=== PATIENT | female | born 1970 | race Caucasian/White ===

== ENCOUNTER 2023-05-07 07:59 | Outpatient (OUT) | payer BC, SELFPAY ==
--- NOTE | 2023-05-07 08:01 | MM_ITS ---
Patient Name: CRYSTAL MORSE MR#: [id number] : 1970 Exam Date: 05/07/2023 Ordering Doctor: DR. HARITHA AVILA D.O. RADIOLOGY REPORT PROCEDURE: MM TOMOSYNTHESIS SCREENING BI COMPARISON: MG MAMM SCREEN 3D [facility]ERSON CAD, 05/04/2022. MG MAMM SCREEN 3D JERSON CAD, 04/27/2021. INDICATIONS: screening Calculator Name NCI Breast Cancer Risk Assessment Tool 5 Year Breast Cancer Risk 1.10% Lifetime Breast Cancer Risk 9.70% Personal Breast Cancer No Personal Ovarian Cancer No Treatments None Family Cancers Aunt-maternal with breast cancer at age 40. LOCATION: [facility] BREAST COMPOSITION: Heterogeneously dense,which may obscure small masses. FINDINGS: DIAGNOSTIC CATEGORY 2--BENIGN FINDING. NO CHANGE FROM COMPARISON. Scattered benign-appearing nodules are present. Scattered benign-appearing calcifications are present. Scattered benign-appearing lymph nodes are present. RIGHT BREAST: No significant suspicious finding. LEFT BREAST: No significant suspicious finding. RECOMMENDATIONS: ROUTINE MAMMOGRAM AND CLINICAL EVALUATION IN 12 MONTHS. PLEASE NOTE: A NORMAL MAMMOGRAM DOES NOT EXCLUDE THE POSSIBILITY OF BREAST CANCER. A CLINICALLY SUSPICIOUS PALPABLE LUMP SHOULD BE BIOPSIED. Dictated by: Surya Queen MD on 05/07/2023 at 09:37 Approved by: Surya Queen MD on 05/07/2023 at 09:38
== END 2023-05-07 08:00 | disposition home or self-care (01) ==
LOC: MAMMO 07:59
PROVIDERS: PCP Internal Medicine; Visit Provider Obstetrics & Gynecology
DX: Z12.31 Encounter for screening mammogram for malignant neoplasm of breast (principal); Z80.3 Family history of malignant neoplasm of breast
CPT/HCPCS: 77063; 77067

== ENCOUNTER 2024-05-19 07:36 | Outpatient (OUT) | payer BC, SELFPAY ==
--- OUTSIDE RECORDS SUMMARY | 2024-05-19 07:38 | XMS_ITS | CCD ---
Author Organization [facility] Care Team Providers Care Charge Nurse Name Role Phone Muriel Reis Primary Care Physician Muriel Herrera Unavailable Unavailable Jessica Byers Unavailable DR JEMAL POLO Primary Care Unavailable BRIANNA SUN Admitting Unavailable CINDY MENON Consulting Unavailable BRIANNA SUN Attending Unavailable BRIANNA SUN Consulting Unavailable CHRIST, DR WHIPPLE Consulting Unavailable SUMMER DIXON Admitting Unavailable CHRIST, DR WHIPPLE Primary Care Unavailable SUMMER DIXON Attending Unavailable CHRIST, DR WHIPPLE Admitting Unavailable CHRIST, DR WHIPPLE Attending Unavailable CHRIST, DR WHIPPLE Primary Care Unavailable Jemal Polo Unavailable Jemal Polo DO Primary Care Provider CELIO RANDOLPH Referring JEMAL Cullen Primary Care Unavailable Jemal Polo MD Primary Care Provider BRIANNA SUN Attending Unavailable MAGGI WYNNE Attending Unavailable Allergies Allergy Classification Reported Allergen(s) Allergy Type Date of Onset Reaction(s) Facility Penicillins (antibiotic) (1 source) Penicillins Drug [facility] Quinolones (antibiotic) (1 source) Ciprofloxacin; Translations: [Cipro] Drug [facility] (14 sources) Ciprofloxacin Drug Allergy 01-03-20 13 Nausea Only [facility] (8 sources) Penicillin G Drug Allergy 04-24-20 23 [facility] (2 sources) Cefaclor Drug Allergy 04-28-20 15 [facility] (2 sources) Ciprofloxacin Drug Allergy 04-28-20 15 [facility] (5 sources) Clarithromycin Drug Allergy 04-28-20 15 Unknown Reaction [facility] (2 sources) Penicillins Drug allergy (disorder) 12-24-19 13 [facility] (3 sources) Clarithromycin Drug Allergy 01-24-20 13 Unknown [facility] Other (3 sources) Penicillin Drug Allergy 01-03-20 13 Unknown [facility] Other (1 source) Substance with penicillin structure and antibacterial mechanism of action (substance) Drug allergy 11-13-19 07 PENICILLINS vocalt[facility] Other (3 sources) Ceclor *CEPHALOSPORINS* Propensity to adverse reactions 01-03-20 13 Unknown [facility] Other (1 source) patient allergy list reviewed by nurse or physicia Propensity to adverse reactions 12-25-19 18 Comment:Done [facility]alt[facility] Other (1 source) Penicillins Propensity to adverse reactions to drug 10-06-19 17 [facility] (3 sources) Cephalosporins (Antibiotic) Allergy to substance 04-24-20 23 Unknown Reaction [facility] (2 sources) Penicillins Drug Intolerance 10-06-19 17 [facility] Medications Current Medications Medication Drug Class(es) Dates Sig (Normalized) Sig (Original) acetaminophen 325 mg / HYDROcodone bitartrate 5 mg oral tablet (1 source) Opioid Agonist Start: 02-12-2024 take 1 tablet by mouth every eight hours Hydrocodone-Acetamin ophen Active 1 TAB PO Every 8 hours 17 11February 12, 2024 cyclobenzaprine hydrochloride 10 mg oral tablet (7 sources) Muscle Relaxant Start: 02-11-2024 take 10 mg by mouth once daily Cyclobenzaprine Active 10 MG PO daily 11 03February 11, 2024 12:00am Start: 05-19-2022 take 1-2 tablets by mouth once daily at bedtime as needed Cyclobenzaprine HCl 5 MG 1-2 tablet at bedtime as needed Orally Once a day for 7 day(s) Apr, Not-Taking/PRN doxycycline hyclate 100 mg oral capsule (4 sources) Tetracycline-class Drug Start: 06-08-2023 take 1 capsule by mouth every twelve hours Doxycycline Hyclate 100 MG 1 capsule Orally Twice a day for 7 days May, Active Start: 03-26-2023 take 1 tablet by kathy th every twelve hours Doxycycline Hyclate 100 MG 1 tablet Orally Twice a day for 7 days Feb, Not-Taking/PRN methylPREDNISolone 4 mg oral tablet (4 sources) Corticosteroid Start: 02-11-2024 take 1 tablet by mouth once Methylprednisolone (Medrol (Jose Daniel)) 4 mg tablets,dose pack Active 0 PO per package directions February 11, 2024 12:00am PO PER PKG DIR for 6 days Start: 05-19-2022 methylPREDNISo lone 4 MG as directed Orally for daily dose take half with breakfast, half with dinner for 6 days Apr, Active Completed/Discontinued Medications Medication Drug Class(es) Dates Sig (Normalized) Sig (Original) acetaminophen 500 mg oral tablet (1 source) take 2 tablets by mouth every six hours as needed Tylenol Extra Strength 500 mg tablet take 2 tablets (1,000 mg) by oral route every 6 hours as needed ascorbic acid 500 mg extended release oral capsule (1 source) Vitamin C take 1 capsule by mouth once daily Vitamin C 500 mg capsule,extended release take 1 capsule by oral route daily cetirizine hydrochloride 10 mg oral capsule (1 source) Histamine-1 Receptor Antagonist take 1 capsule by mouth once daily Zyrtec 10 mg capsule take 1 capsule by oral route daily ibuprofen 200 mg oral capsule (1 source) Nonsteroidal Anti-inflammatory Drug take 1 capsule by mouth every four to six hours as needed ibuprofen 200 mg capsule take 1 capsule (200 mg) by oral route every 4-6 hours as needed ketoconazole 20 mg/ml topical cream (3 sources) Azole Antifungal Start: 12-11-2022 Ketoconazole 2 % 1 application Externally Twice a week for 28 days Nov, Not-Taking/PRN Start: 12-11-2022 Ketoconazole 2 % 1 application Externally Twice a week for 28 days Nov, Active Ketorolac (5 sources) Nonsteroidal Anti-inflammatory Drug, Cyclooxygenase Inhibitor Start: 09-26-2017 Toradol per 15 mg August, 30 mg levoFLOXacin 500 mg oral tablet (3 sources) Quinolone Antimicrobial Start: 01-14-2024 End: 02-11-2024 take 500 mg by mouth once daily Levofloxacin Discontinued 500 MG PO Daily 5 January 14, 2024 12:00am February 11, 2024 11:16am Multiple Vitamin, Womens tablet (1 source) take 1 tablet by mouth once daily Multiple Vitamin, Womens tablet take 1 tablet by oral route daily Toradol 30 mg/ml (5 sources) Start: 05-19-2022 Toradol 30 mg/ml Apr, 30 mg triamcinolone acetonide 40 mg/ml injectable suspension (5 sources) Corticosteroid Start: 05-19-2022 Kenalog-40 Apr, 40 mg zinc 50 mg tablet (1 source) take 1 tablet by mouth once daily zinc 50 mg tablet take 1 tablet by oral route daily Problems Active Problems Problem Classification Problem Date Documented Date Episodic/Chronic Acute bronchitis (2 sources) Acute bronchitis; Translations: [Acute bronchitis due to other specified organisms] Onset: 01-02-2013 Episodic Asthma (6 sources) Mild intermittent asthma; Translations: [Mild intermittent asthma, uncomplicated] Chronic Chronic obstructive pulmonary disease and bronchiectasis (4 sources) Simple chronic bronchitis; Translations: [Simple chronic bronchitis] Chronic Complications of surgical procedures or medical care (1 source) Postoperative hypothyroidism; Translations: [Postprocedural hypothyroidism] Chronic Genitourinary symptoms and ill-defined conditions (1 source) Dysuria; Translations: [Dysuria] Episodic Hemorrhoids (1 source) Residual hemorrhoidal skin tags; Translations: [Residual hemorrhoidal skin tags] Episodic Immunizations and screening for infectious disease (1 source) Contact with and (suspected) exposure to other viral communicable diseases; Translations: [Contact with and (suspected) exposure to COVID-19] Episodic Menopausal disorders (1 source) Menopausal and female climacteric states; Translations: [MENOPAUSAL FE CLIMACTERIC STATES] Onset: 05-07-2022 Chronic Other connective tissue disease (1 source) Pain in right leg Onset: 08-26-2020 Episodic Other connective tissue disease (1 source) Pain in left leg Onset: 08-26-2020 Episodic Other female genital disorders (1 source) Premenstrual tension syndrome; Translations: [Premenstrual tension syndromes] Onset: 01-11-2009 Chronic Other nervous system disorders (1 source) Other disturbances of skin sensation Onset: 08-26-2020 Episodic Other non-traumatic joint disorders (2 sources) Arthralgia of the lower leg; Translations: [Pain in joint, lower leg] Onset: 10-12-2017 Episodic Other nutritional; endocrine; and metabolic disorders (1 source) Simple obesity ; Translations: [Other obesity due to excess calories] Onset: 06-11-2015 Chronic Other nutritional; endocrine; and metabolic disorders (3 sources) Obese class I; Translations: [Body mass index 33.0-33.9, adult] Onset: 06-11-2015 Chronic Other nutritional; endocrine; and metabolic disorders (1 source) Obesity; Translations: [Obesity, unspecified] Chronic Other nutritional; endocrine; and metabolic disorders (2 sources) Morbid obesity; Translations: [Morbid (severe) obesity due to excess calories] 03-14-2024 Chronic Other screening for suspected conditions (not mental disorders or infectious disease) (8 sources) Encounter for screening mammogram for malignant neoplasm of breast; Translations: [Encounter for screening for diseases of the blood and blood-forming organs and certain disorders involving the immune mechanism] Onset: 05-04-2022 Resolved: 02-17-2021 Episodic Other skin disorders (1 source) Epidermoid cyst of skin; Translations: [Epidermal cyst] 04-13-2023 Episodic Other skin disorders (1 source) Epidermal cyst; Translations: [Epidermal cyst] Onset: 04-13-2023 Episodic Other upper respiratory disease (1 source) Other seasonal allergic rhinitis Chronic Other upper respiratory disease (3 sources) Allergic rhinitis; Translations: [Allergic rhinitis, unspecified] Resolved: 02-17-2021 Chronic Other upper respiratory disease (1 source) Other allergic rhinitis Chronic Other upper respiratory infections (1 source) Chronic sinusitis; Translations: [Chronic sinusitis, unspecified] Onset: 06-17-2015 Chronic Other upper respiratory infections (11 sources) Acute maxillary sinusitis; Translations: [Acute maxillary sinusitis, unspecified] Onset: 06-26-2013 Episodic Residual codes; unclassified (1 source) Family history of malignant neoplasm of breast; Translations: [FAMILY HX MALIG NEOPLASM OF BREAST] Onset: 05-07-2022 Episodic Residual codes; unclassified (2 sources) History of hysterectomy for benign disease; Translations: [Acquired absence of both cervix and uterus] 03-14-2024 Episodic Spondylosis; intervertebral disc disorders; other back problems (2 sources) Degeneration of lumbar intervertebral disc; Translations: [Degeneration of intervertebral disc of lumbar region] 02-11-2024 Chronic Spondylosis; intervertebral disc disorders; other back problems (10 sources) Acute back pain with sciatica; Translations: [Lumbago with sciatica, left side] Onset: 09-15-2013 Episodic Substance-related disorders (5 sources) Tobacco user; Translations: [Nicotine dependence, cigarettes, in remission] Onset: 06-11-2015 Chronic Thyroid disorders (4 sources) Thyroiditis, unspecified; Translations: [Goiter] Chronic Unclassified (1 source) Sterilization procedure; Translations: [Sterilization] Onset: 04-02-2009 Viral infection (9 sources) Verruca vulgaris; Translations: [Viral warts, unspecified] Onset: 11-12-2006 01-14-2024 Episodic Viral infection (1 source) Disease caused by 2019-nCoV; Translations: [COVID-19] Past or Other Problems Problem Classification Problem Date Documented Date Episodic/Chronic Bacterial infection; unspecified site (1 source) Bacterial infectious disease; Translations: [Bacterial infection, unspecified, in conditions classified elsewhere and of unspecified site] Onset: 11-26-2015 Episodic Deficiency and other anemia (1 source) Iron deficiency anemia; Translations: [Iron deficiency anemia, unspecified] Onset: 11-26-2015 Episodic Diseases of mouth; excluding dental (1 source) Sialoadenitis; Translations: [Sialoadenitis] Onset: 11-26-2015 Episodic Disorders of teeth and jaw (1 source) Acute gingivitis; Translations: [Acute gingivitis, plaque induced] Onset: 11-26-2015 Episodic Inflammatory diseases of female pelvic organs (1 source) Vaginitis and vulvovaginitis; Translations: [Unspecified vaginitis and vulvovaginitis] Onset: 04-02-2009 Resolved: 08-05-2020 Episodic Joint disorders and dislocations; trauma-related (1 source) Tear of articular cartilage of left knee, current, initial encounter; Translations: [Tear of articular cartilage of left knee, current, initial encounter] Onset: 10-12-2017 Episodic Malaise and fatigue (1 source) Fatigue; Translations: [Other fatigue] Onset: 09-18-2014 Episodic Menstrual disorders (1 source) Excessive and frequent menstruation; Translations: [Excessive and frequent menstruation with regular cycle] Onset: 09-18-2014 Resolved: 01-18-2022 Chronic Other connective tissue disease (1 source) Musculoskeletal symptom; Translations: [Other musculoskeletal symptoms referable to limbs] Onset: 12-24-2017 Episodic Other lower respiratory disease (1 source) Cough; Translations: [Cough, unspecified] Onset: 07-06-2014 Episodic Other lower respiratory disease (1 source) Wheezing; Translations: [Wheezing] Onset: 06-29-2014 Episodic Other upper respiratory disease (1 source) Hypertrophy of nasal turbinates; Translations: [Hypertrophy of nasal turbinates] Onset: 06-11-2015 Episodic Residual codes; unclassified (1 source) Tobacco user; Translations: [Nondependent tobacco use disorder] Onset: 06-11-2015 Episodic Screening and history of mental health and substance abuse codes (1 source) History of tobacco use; Translations: [Personal history of tobacco use, presenting hazards to health] Onset: 12-24-2017 Episodic Unclassified (1 source) Surveillance of oral contraception done; Translations: [Surveillance of previously prescribed contraceptive pill] Onset: 11-12-2006 Unclassified (1 source) Gynecological examination normal; Translations: [Routine gynecological examination] Onset: 11-12-2006 Unclassified (1 source) Acute bilateral low back pain without sciatica M54.50 Results Test Name Value Interpretation Reference Range Facility Surgical Pathology Reporton 04-13-2023 Surgical Pathology Report (NOTE) Path Number: [id number] -- Diagnosis -- Skin from back, excision: -Epithelial inclusion cyst. Jose Cardozo M.D. Electronically Signed Out rdd/04/16/2023 Clinical Information Pre-Op Diagnosis: EPIDERMAL CYST Operative Findings: TISSUE kb Source of Specimen A: EPIDERMAL CYST Gross Description MILAGRO SEVILLA, BACK CYST Received in formalin is a 1.2 x 0.4 cm browne, wrinkled skin fragment excised to a depth of 1.2 cm. Within the subcutaneous tissue is a 1.5 cm disrupted cyst containing and exuding white pasty material. [employer] sections 1c. tm SM/kb2:04/13/2023 Microscopic Description Microscopic examination performed. Processing Lab: [address] [id number] Interpretation Performed at [address] [id number] SURGICAL PATHOLOGY CONSULTATION Patient Name: MILAGRO SEVILLA [facility] Rec: [id number] [facility] ANATOMIC PATHOLOGY [address] [place] [id number] Normal [facility] CBC AUTO DIFFon 07-25-2022 BASO # 0.1 103/ul Normal 0.0-0.1 [facility] Comment on above: Performed By: #### C BC #### [facility] [address] [address] [address] Mary Madrid Basophils/100 WBC (Bld) 0.8 % Normal 0.2-2.0 [facility] Comment on above: Performed By: #### C BC #### [facility] [address] [address] [address] Mary Madrid EO # 0.2 103/ul Normal 0.0-0.7 [facility] Comment on above: Performed By: #### C BC #### [facility] [address] [address] [address] Mary Madrid Eosinophils/100 WBC (Bld) 2.7 % Normal 0.9-7.0 [facility] Comment on above: Performed By: #### C BC #### [facility] [address] [address] [address] Mary Madrid Erythrocyte distribution width (RBC) [Ratio] 12.7 % Normal 11.0-15.0 [facility] Comment on above: Performed By: #### C BC #### [facility] [address] [place] [address] Dr. Mary Madrid Hematocrit (Bld) [Volume fraction] 40.2 % Normal 36.0-48.0 [facility] Comment on above: Performed By: #### C BC #### [facility] [address] [address] [address] Mary Mdarid Hemoglobin (Bld) [Mass/Vol] 13.4 g/dL Normal 12.0-16.0 [facility] Comment on above: Performed By: #### C BC #### [facility] [address] [place] [address] Dr. Mary Madrid IG # 0.03 10e3/ul Normal 0.00-0.03 [facility] Comment on above: Performed By: #### C BC #### [facility] [address] [place] [address] Dr. Mary Madrid IG % 0.5 % Normal 0.0-0.5 [facility] Comment on above: Performed By: #### C BC #### [facility] [address] [place] [address] Dr. Mary Madrid LYMPH # 1.8 103/ul Normal 1.2-3.8 [facility] Comment on above: Performed By: #### C BC #### [facility] [address] [place] [address] Dr. Mary Madrid Lymphocytes/100 WBC (Bld) 29.0 % Normal 20.5-60.0 [facility] Comment on above: Performed By: #### C BC #### [facility] [address] [place] [address] Dr. Mary Madrid MANUAL DIFF REQ NO Normal [facility] Comment on above: Performed By: #### C BC #### [facility] [address] [place] [address] Dr. Mary Madrid MCH (RBC) [Entitic mass] 30.9 pg Normal 26.7-34.0 [facility] Comment on above: Performed By: #### C BC #### [facility] [address] [place] [address] Dr. Mary Madrid MCHC (RBC) [Mass/Vol] 33.3 g/dL Normal 29.9-35.2 [facility] Comment on above: Performed By: #### C BC #### [facility] [address] [place] [address] Dr. Mary Madrid MCV (RBC) [Entitic vol] 92.6 fL Normal 81.0-99.0 [facility] Comment on above: Performed By: #### C BC #### [facility] [address] [place] [address] Dr. Mary Madrid MONO # 0.6 103/ul Normal 0.3-0.8 [facility] Comment on above: Performed By: #### C BC #### [facility] [address] [place] [address] Dr. Mary Madrid Monocytes/100 WBC (Bld) 9.4 % Normal 1.7-12.0 [facility] Comment on above: Performed By: #### C BC #### [facility] [address] [place] [address] Dr. Mary Madrid NEUT # 3.6 103/ul Normal 1.4-6.5 [facility] Comment on above: Performed By: #### C BC #### [facility] [address] [place] [address] Dr. Mary Madrid Neutrophils/100 WBC (Bld) 57.6 % Normal 43.0-75.0 [facility] Comment on above: Performed By: #### C BC #### [facility] [address] [place] [address] Dr. Mary Madrid Platelet mean volume (Bld) [Entitic vol] 8.7 fL Critically low 9.5-13.5 [facility] Comment on above: Performed By: #### C BC #### [facility] [address] [place] [address] Dr. Mary Madrid PLT 311 103/ul Normal 150-450 [facility] Comment on above: Performed By: #### C BC #### [facility] [address] [place] [address] Dr. Mary Madrid RBC 4.34 106/ul Normal 4.20-5.40 [facility] Comment on above: Performed By: #### C BC #### [facility] [address] [place] [address] Dr. Mary Madrid WBC 6.3 103/ul Normal 4.0-11.0 [facility] Comment on above: Performed By: #### C BC #### [facility] [address] [place] [address] Dr. Mary Madrid LIPID PROFILEon 07-25-2022 CHOL-HDL RATIO NORM SEE BELOW Normal [facility] Comment on above: Result Comment: 3.3 - 4.4 LOW RISK 4.4 - 7.1 AVERAGE RISK 7.1 - 11.0 MODERATE RISK >11.0 HIGH RISK Performed By: #### C MP, LIPID, TSH #### [facility] [address] [address] [address] Mary Madrid Cholesterol [Mass/Vol] 113 mg/dL Normal <=200 Th [facility] Comment on above: Performed By: #### C MP, LIPID, TSH #### [facility] [address] [address] [address] Mary Madrid Cholesterol in HDL [Mass/Vol] 45 mg/dL Normal 40-60 [facility] Comment on above: Performed By: #### C MP, LIPID, TSH #### [facility] [address] [address] [address] Mary Madrid Cholesterol in LDL [Mass/Vol] 57.4 mg/dL Normal [facility] Comment on above: Performed By: #### C MP, LIPID, TSH #### [facility] [address] [address] [address] Mary Madrid Cholesterol.total/Gissel sterol in HDL [Mass ratio] 2.5 {ratio} Normal [facility] Comment on above: Performed By: #### C MP, LIPID, TSH #### [facility] [address] [address] [address] Mary Madrid HDL NORMAL > or = 60 mg/dl - LOW CARDIOVASCULAR RISK <40 mg/dl - HIGH CARDIOVASCULAR RISK Normal [facility] Comment on above: Performed By: #### C MP, LIPID, TSH #### [facility] [address] [address] [address] Mary Madrid LDL CALC NORMAL SEE BELOW Normal [facility] Comment on above: Result Comment: <100 mg/dl OPTIMAL 100 - 129 mg/dl NEAR OR ABOVE OPTIMAL 130 - 159 mg/dl BORDERLINE HIGH 160 - 189 mg/dl HIGH >190 mg/dl VERY HIGH Performed By: #### C MP, LIPID, TSH #### [facility] [address] [address] [address] Mary Madrid Triglyceride [Mass/Vol] 53 mg/dL Normal <=150 T [facility] Comment on above: Performed By: #### C MP, LIPID, TSH #### [facility] [address] [place] [address] Dr. Mary Madrid VLDL CALC 10.6 mg/dL Normal [facility] Comment on above: Performed By: #### C MP, LIPID, TSH #### [facility] [address] [place] [address] Dr. Mary Madrid PROF 14(COMP METB)on 023 Albumin [Mass/Vol] 3.5 g/dL Normal 3.4-5.0 [facility] Comment on above: Performed By: #### C MP, LIPID, TSH #### [facility] [address] [place] [address] Dr. Mary Madrid Albumin/Globulin [Mass ratio] 1.0 {ratio} Normal [facility] Comment on above: Performed By: #### C MP, LIPID, TSH #### [facility] [address] [place] [address] Dr. Mary Madrid ALP [Catalytic activity/Vol] 65 U/L Normal 46-116 [facility] Comment on above: Performed By: #### C MP, LIPID, TSH #### [facility] [address] [place] [address] Dr. Mary Madrid ALT [Catalytic activity/Vol] 39 U/L Normal 14-59 [facility] Comment on above: Performed By: #### C MP, LIPID, TSH #### [facility] [address] [place] [address] Dr. Mary Madrid Anion gap [Moles/Vol] 12.4 mmol/L Normal [facility] Comment on above: Performed By: #### C MP, LIPID, TSH #### [facility] [address] [place] [address] Dr. Mary Madrid AST [Catalytic activity/Vol] 17 U/L Normal 15-37 [facility] Comment on above: Performed By: #### C MP, LIPID, TSH #### [facility] [address] [address] [address] Mary Madrid Bilirubin [Mass/Vol] 0.4 mg/dL Normal 0.2-1.0 [facility] Comment on above: Performed By: #### C MP, LIPID, TSH #### [facility] [address] [place] [address] Dr. Mary Madrid Calcium [Mass/Vol] 9.0 mg/dL Normal 8.5-10.1 [facility] Comment on above: Performed By: #### C MP, LIPID, TSH #### [facility] [address] [place] [address] Dr. Mary Madrid Chloride [Moles/Vol] 107 mmol/L Normal 98-107 [facility] Comment on above: Performed By: #### C MP, LIPID, TSH #### [facility] [address] [place] [address] Dr. Mary Madrid CO2 [Moles/Vol] 28.8 mmol/L Normal 21.0-32.0 [facility] Comment on above: Performed By: #### C MP, LIPID, TSH #### [facility] [address] [place] [address] Dr. Mary Madrid Creatinine [Mass/Vol] 0.78 mg/dL Normal 0.55-1.02 [facility] Comment on above: Performed By: #### C MP, LIPID, TSH #### [facility] [address] [place] [address] Dr. Mary Madrid EGFR-AF SURINAMESE >60 Normal >=60 [facility] Comment on above: Performed By: #### C MP, LIPID, TSH #### [facility] [address] [place] [address] Dr. Mary Madrid EGFR-NON AF SURINAMESE >60 Normal >=60 [facility] Comment on above: Performed By: #### C MP, LIPID, TSH #### [facility] [address] [place] [address] Dr. Mary Madrid Globulin (S) [Mass/Vol] 3.4 g/dL Normal T [facility] Comment on above: Performed By: #### C MP, LIPID, TSH #### [facility] [address] [address] [address] Mary Madrid Glucose [Mass/Vol] 94 mg/dL Normal 74-106 [facility] Comment on above: Performed By: #### C MP, LIPID, TSH #### [facility] [address] [address] [address] Mary Madrid Potassium [Moles/Vol] 4.2 mmol/L Normal 3.5-5.1 [facility] Comment on above: Performed By: #### C MP, LIPID, TSH #### [facility] [address] [address] [address] Mary Madrid Protein [Mass/Vol] 6.9 g/dL Normal 6.4-8.2 [facility] Comment on above: Performed By: #### C MP, LIPID, TSH #### [facility] [address] [address] [address] Mary Madrid Sodium [Moles/Vol] 144 mmol/L Normal 136-145 [facility] Comment on above: Performed By: #### C MP, LIPID, TSH #### [facility] [address] [address] [address] Mary Madrid Urea nitrogen [Mass/Vol] 13.0 mg/dL Normal 7.0-18.0 [facility] Comment on above: Performed By: #### C MP, LIPID, TSH #### [facility] [address] [address] [address] Mary Madrid Urea nitrogen/Creatinine [Mass ratio] 16.7 mg/mg Normal [facility] Comment on above: Performed By: #### C MP, LIPID, TSH #### [facility] [address] [address] [address] Mary Madrid TSHon 07-25-2022 TSH 1.082 uIU/mL Normal 0.358-3.740 [facility] Comment on above: Performed By: #### C MP, LIPID, TSH #### [facility] [address] [address] [address] Mary Madrid VITAMIN D 25 OHon 07-25-2022 VIT D 25-OH 36.1 ng/mL Normal [facility] Comment on above: Performed By: #### V ITAD #### [facility] [address] [place], [place] [address] Dr. Mary Madrid VIT D RANGES SEE BELOW Normal [facility] Comment on above: Result Comment: <20 ng/mL Vit D deficient 20 - <30 ng/mL Vit D insufficient 30 - 100 ng/mL Vit D sufficient >100 ng/mL Potential Toxicity Performed By: #### V ITAD #### [facility] [address] [place], [place] [address] Dr. Mary Madrid FSHon 05-05-2022 FSH 7.9 mIU/mL Normal [facility] Comment on above: Result Comment: Adul t Female: Follicular phase 3.5 - 12.5 Ovulation phase 4.7 - 21.5 Luteal phase 1.7 - 7.7 Postmenopausal 25.8 - 134.8 Performed By: #### L BCFS #### [facility] [address] [place], [place] [id number] Dr. Mary Madrid MG MAMM SCREEN 3D JERSON CADon 05-04-2022 MG MAMM SCREEN 3D JERSON CAD Patient: MILAGRO SEVILLA Exam Date: 05/04/2022 : 1970 Gender:F Ordering : DR. BRIANNA SUN D.O. Admission #: [id number] Family : Order #: [id number] CLICK HERE TO VIEW EXAM RADIOLOGY REPORT PROCEDURE: MAMMOGRAM SCREENING 3D BILATERAL CAD COMPARISON: MG MAMM SCREEN JERSON W CAD, 04/19/2020. MG MAMM SCREEN 3D JERSON CAD, 04/27/2021. INDICATIONS: Screening mammography Calculator Name NCI Breast Cancer Risk Assessment Tool 5 Year Breast Cancer Risk 1.10% Lifetime Breast Cancer Risk 9.90% Personal Breast Cancer No Personal Ovarian Cancer No Treatments None Family Cancers Aunt-maternal with breast cancer at age 40. LOCATION: [facility] BREAST COMPOSITION: Heterogeneously dense,which may obscure small masses. FINDINGS: DIAGNOSTIC CATEGORY 2--BENIGN FINDING. NO CHANGE FROM COMPARISON. Scattered benign-appearing nodules are present. Scattered benign-appearing calcifications are present. Scattered benign-appearing lymph nodes are present. RIGHT BREAST: No significant suspicious finding. LEFT BREAST: No significant suspicious finding. RECOMMENDATIONS: ROUTINE MAMMOGRAM AND CLINICAL EVALUATION IN 12 MONTHS. PLEASE NOTE: A NORMAL MAMMOGRAM DOES NOT EXCLUDE THE POSSIBILITY OF BREAST CANCER. A CLINICALLY SUSPICIOUS PALPABLE LUMP SHOULD BE BIOPSIED. Dictated by: Cindy Menon MD on 05/04/2022 at 11:22 Approved by: Cindy Menon MD on 05/04/2022 at 11:27 Normal [facility] Dermatopathologyon 0 Dermatopathology [facility] Dermatopathology Laboratory [address] [place] [id number] DERMATOPATHOLOGY REPORT Name:[facility] #[facility] [id number] Location: [facility] Date of Procedure: 04/12/2020 Race: Date Received: 04/14/2020 /Sex: 1970 (Age: 50) / F Date Reported: 04/16/2020 Other: Submitting Physician:FEI LEACH MD FINAL DIAGNOSIS SKIN, R NECK, BIOPSY: ACTINIC DAMAGE, SEE NOTE. Note: Microscopic examination reveals a specimen that extends into the deep reticular dermis. There is mild epidermal atrophy with mild solar elastosis with some dilation of superficial dermal blood vessels. Von Kossa and elastic stains do not reveal irregular calcified elastic fiber bundles. All control slides stain appropriately. These findings may be seen in poikiloderma. The findings of pseudo xanthoma elasticum are not present. Electronically Signed Out by ZAIDA SULLIVAN M.D. Electronically Signed Out By ZAIDA SULLIVAN MD/[facility] By the signature on this report, the individual or group listed as making the Final Interpretation/Diagn osis certifies that they have reviewed this case. 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 Biopsy. Specimens Submitted As: A: SKIN, R NECK Gross Description: Received in formalin is a browne piece of skin measuring 2 x 2 x 4 mm. Inked and embedded in toto. mlz/04/14/2020 Normal [facility] Comment on above: Performed By: #### D #### Dermatopathology Vital Signs Date Time Vital Sign Value Performing Clinician Faci lity 03-20-2024 09:33-0500 Body mass index (BMI) [Ratio] 35.47 kg/m2 Brianna Nataprjasperra DO Work Phone: [facility] 03-20-2024 09:33-0500 Body weight 106.59 kg Brianna Huaprjasperra DO Work Phone: [facility] 03-20-2024 09:33-0500 Diastolic blood pressure 86 mm[Hg] Brianna Huaprjasperra DO Work Phone: [facility] 03-20-2024 09:33-0500 Systolic blood pressure 144 mm[Hg] Brianna Nataprjasperra DO Work Phone: [facility] 02-12-2024 15:31-0400 Body height 170.[address] [facility] 02-12-2024 15:31-0400 Body mass index (BMI) [Ratio] 34.9 kg/m2 [facility] 02-12-2024 15:31-0400 Body weight 101.[address] [facility] 02-12-2024 15:31-0400 Diastolic blood pressure 79 mm[Hg] [facility] 02-12-2024 15:31-0400 Heart rate 79 /min [facility] 02-12-2024 15:31-0400 Respiratory rate 12 /min [facility] 02-12-2024 15:31-0400 Systolic blood pressure 119 mm[Hg] [facility] 02-11-2024 11:07-0400 Body height 170.[address] [facility] 02-11-2024 11:07-0400 Body mass index (BMI) [Ratio] 34.9 kg/m2 [facility] 02-11-2024 11:07-0400 Body temperature 99.3 [degF] [facility] 02-11-2024 11:07-04[address] Body weight [address] [facility] 02-11-2024 11:07-0400 Diastolic blood pressure 82 mm[Hg] [facility] 02-11-2024 11:07-0400 Heart rate 75 /min [facility] 02-11-2024 11:07-0400 SaO2% (BldA) [Mass fraction] 99 % [facility] 02-11-2024 11:07-0400 Systolic blood pressure 130 mm[Hg] [facility] 04-24-2023 15:30-0500 Body height 170.81 cm Jemal Ball Other [facility] Other 04-24-2023 15:30-0500 Body mass index (BMI) [Ratio] 38.27 kg/m2 Jemal Ball Other [facility] Other 04-24-2023 15:30-0500 Body weight 111.68 kg Jemal Ball Other [facility] Other 04-24-2023 15:30-0500 Diastolic blood pressure 80 mm[Hg] Jemal Ball Other [facility] Other 04-24-2023 15:30-0500 Respiratory rate 12 /min Jemal Ball Other [facility] Other 04-24-2023 15:30-0500 Systolic blood pressure 118 mm[Hg] Jemal Ball Other [facility] Other 05-19-2022 10:50-0500 Body height 170.81 cm Jessica Byers Other [facility] Other 05-19-2022 10:50-0500 Body mass index (BMI) [Ratio] 37.31 kg/m2 Jessica Byers Other [facility] Other 05-19-2022 10:50-0500 Body temperature 98.4 [degF] Jessica Byers Other [facility] Other 05-19-2022 10:50-0500 Body weight 108.86 kg Jessica Byers Other [facility] Other 05-19-2022 10:50-0500 Diastolic blood pressure 88 mm[Hg] Jessica Byers Other [facility] Other 05-19-2022 10:50-0500 Respiratory rate 18 /min Jessica Byers Other [facility] Other 05-19-2022 10:50-0500 SaO2% (BldA) [Mass fraction] 98 % Jessica Byers Other [facility] Other 05-19-2022 10:50-0500 Systolic blood pressure 127 mm[Hg] Jessica Byers Other [facility] Other 08-26-2020 11:35-0400 Body height 176.53 cm [facility] 08-26-2020 11:35-0400 Body mass index (BMI) [Ratio] 34.64 kg/m2 [facility] 08-26-2020 11:35-0400 Body surface area Derived from formula 2.3 m2 [facility] 08-26-2020 11:35-0400 Body weight 107.96 kg [facility] 08-26-2020 11:35-0400 Diastolic blood pressure 80 mm[Hg] [facility] 08-26-2020 11:35-0400 Heart rate 72 /min [facility] 08-26-2020 11:35-0400 Systolic blood pressure 122 mm[Hg] [facility] Encounters Encounter Date Encounter Type Care Provider Facility Start: 03-20-2024 End: 03-20-2024 Patient encounter status Brianna Brown Corinne DO Work Phone: [facility] Start: 03-20-2024 End: 03-20-2024 Periodic preventive med est patient 40-64yrs Brianna Brown Corinne DO Work Phone: [facility] Comment on above: Encounter for gyneco logical examination without abnormal finding (Primary Dx); Other screening mammogram; Obesity, morbid (CMS/HCC); Hx of hysterectomy for benign disease Start: 03-20-2024 End: 03-20-2024 ambulatory BRIANNA Brown CORINNE Not Available Start: 02-12-2024 End: 02-12-2024 ambulatory [facility] Work Phone: Start: 02-12-2024 End: 02-12-2024 Patient encounter procedure [facility] Physician [facility] Work Phone: Start: 02-11-2024 End: 02-11-2024 ambulatory [facility] Work Phone: Start: 02-11-2024 End: 02-11-2024 Patient encounter procedure [facility] Physician [facility] Work Phone: Start: 01-14-2024 End: 01-14-2024 ambulatory [facility] Work Phone: Start: 01-14-2024 End: 01-14-2024 Patient encounter procedure [facility] Physician [facility] Work Phone: Start: 06-08-2023 End: 06-08-2023 ambulatory Jemal Polo Other [facility] Other Start: 06-08-2023 Office outpatient vi sit 15 minutes Jemal Polo [facility] Start: 04-24-2023 End: 04-24-2023 ambulatory Jemal Polo Other [facility] Other Start: 04-24-2023 Encounter for genera l adult medical examination without abnormal findings Jemal Polo [facility] Start: 04-24-2023 Periodic preventive med est patient 40-64yrs Jemal Polo [facility] Start: 04-13-2023 End: 04-14-2023 ambulatory CELIO [facility] Start: 04-13-2023 End: 04-13-2023 Subsequent hospital visit by physician Jemal Polo DO Work Phone: [facility] Comment on above: Epidermal cyst Start: 03-27-2023 End: 03-27-2023 ambulatory MAGGI YWNNE Not Available Start: 03-26-2023 End: 03-26-2023 ambulatory Jemal Polo Other [facility] Other Start: 03-26-2023 Office outpatient vi sit 15 minutes Jemal Polo [facility] Start: 08-23-2022 End: 08-23-2022 ambulatory Jemal Polo Other [facility] Other Start: 08-23-2022 Telephone encounter Jemal Polo [facility] Start: 07-28-2022 Encounter for genera l adult medical examination without abnormal findings [facility] Start: 07-25-2022 End: 07-26-[address] JEMAL POLO Facility:[facility] Start: 07-25-2022 End: 07-26-2022 Encounter for general adult medical examination without abnormal findings DR JEMAL POLO Facility:[facility] Start: 05-19-2022 End: 05-19-2022 ambulatory Jessica Byers Other [facility] Other Start: 05-19-2022 Office outpatient ne w 20 minutes Jessica Byers [facility] Start: 05-04-2022 End: 05-05-[address] JEMAL POLO Facility:[facility] Start: 04-28-[address] JEMAL POLO Facili ty:[facility] Start: 04-20-2022 Adult health examination Samuel Polo Other [facility] Other Start: 04-20-2022 Gynecological examination normal Jemal Polo Other [facility] Other Start: 08-26-2020 Split Srvc Muriel Manuel Orlando rne Other [facility] Office Procedures Date Procedure Procedure Detail Performing Clinician Start: 08-26-2020 Nerve conduction shannan dies 7-8 studies Muriel Reis Start: 10-10-2016 Removal of suture Samuel Polo Other Start: 04-02-2009 Contraception care education Jemal Polo Other Depression screening Favian Polo Other End: 02-17-2021 Hyperlipidemia screening Jemal Polo Other Plan of Treatment Date Care Activity Detail Author Start: 05-09-2024 Screening for malignant neoplasm of breast Breast cancer screen [facility] Start: 05-08-2024 End: 05-14-2025 DBT Breast - bilateral screening Bilateral screening mammogram with tomosynthesis Imaging Routine Other screening mammogram Expected: 05/08/2024, Expires: 05/14/2025 [facility] Work Phone: Comment on above: Expected: 05/08/2024 , Expires: 05/14/2025 Start: 04-24-2023 End: 04-24-2023 Patient encounter procedure 04/24/2023 8:30 AM EST Office Visit [address] [id number] Celio Randolph MD [address] [place] [address] [address] [place] [address] Suture Removal [facility] Comment on above: Suture Removal Start: 11-28-2022 Influenza vaccination Flu vaccine (# 1) [facility] Start: 2022 Shingles vaccine (1 of 2) Shingles vaccine (1 of 2) [facility] Start: 2017 Screening for malignant neoplasm of colon [facility] Start: 2012 Lipid panel Lipids [facility] [employer] Start: 2002 Screening for malignant neoplasm of cervix [facility] Start: 1993 Screening for malignant neoplasm of cervix Pap smear [facility] Start: 1991 DTaP/Tdap/Td vaccine (1 - Tdap) DTaP/Tdap/Td vaccine (1 - Tdap) [facility] Start: 1990 Hepatitis C screening Hepatitis C sc reen [facility] Start: 1987 HIV screening HIV screen [facility] Start: 1984 Depression Screen Depression Screen [facility] Start: 1970 COVID-19 Vaccine (#1) COVID-19 Vacci ne (#1) [facility] Start: 1970 Hepatitis B vaccine (1 of 3 - 3-dose series) Hepatitis B vaccine (1 of 3 - 3-dose series) [facility] End: 04-13-2023 Surgical Pathology Surgical Pathology Lab Routine Epidermal cyst 1 Occurrences starting 04/13/2023 until 04/13/2023 [facility] [employer] Work Phone: Comment on above: 1 Occurrences starti ng 04/13/2023 until 04/13/2023 End: 04-13-2023 SURGICAL PATHOLOGY REPORT SURGICAL PATHOLOGY REPORT Lab Routine Once for 1 Occurrences starting 04/13/2023 until 04/13/2023 [facility] Comment on above: Once for 1 Occurrenc es starting 04/13/2023 until 04/13/2023 Immunizations Immunization Date Immunization Notes Care Provider Gibson chahal 11-18-2017 diphtheria, tetanus toxoids and acellular pertussis vaccine, unspecified formulation Jemal Polo Other [facility] Payers Date Payer Category Payer [facility] BCBS [id number] 1970 Unknown [id number] 1970 Unknown [id number] 1970 Unknown [id number] 1970 Unknown [id number] 1970 Unknown [id number] 1970 Unknown [id number] 1959 Unknown [id number] 1 Social History Date Type Detail Facility Start: *[facility] Start: [facility] Start: 08-30-2012 End: 03-20-2024 Sex Assigned At [facility] [employer] Other Tobacco smoking status WYIS Tobacco smoking consumption unknown [facility] Start: 08-30-2012 End: 03-20-2024 History of Social function [facility] Start: 1970 Sex Assigned At Not on file [facility] Start: 04-24-2023 Tobacco smoking status WYIS Ex-smoker (finding) [facility] Start: 1970 Sex Assigned At Female F [facility] Start: 03-15-2023 Tobacco smoking status WYIS Never smoked tobacco [facility] Start: 03-15-2023 Tobacco use and exposure Smokeless tobacco non-user [facility] Start: 03-20-2024 Alcoholic beverage intake Current drinker of alcohol (finding) [facility] Clinical Notes 05-19-2022 to 03-20-2024 Brianna Sun DO - 03/20/2024 9:30 AM EST Note Date & Type Note Facility 03-20-2024 History of Presen t illness Narrative Images from the original note were not included. Brianna Sun DO Obstetrics and Gynecology Name: Milagro Sevilla Date/Time of Service:03/20/2024 9:54 AM :1970 Age: 54 y.o. Subjective Milagro Sevilla is a 54 y.o. female who is here for a routine exam. Gynecologic Exam (Patient here for a yearly. Denies problems at this time. Completed mammogram on 05/07/23, will sent future order to the [facility]. Had colonoscopy in 2015.) Control Contraception: status post hysterectomy. LMP: No LMP recorded. Patient has had a hysterectomy. Last Mammogram Results for orders placed in visit on 03/15/23 Bilateral screening mammogram No current outpatient medications on file prior to visit. No current facility-administered medications on file prior to visit. Past Medical History: Diagnosis Date Sinus infection Thyroid disease (CMS/HCC) Past Surgical History: Procedure Laterality Date APPENDECTOMY 1989 SECTION, LOW TRANSVERSE x2 COLONOSCOPY 2015 EXCISIONAL HEMORRHOIDECTOMY HYSTERECTOMY 03/2016 [facility] with BS OTHER SURGICAL HISTORY ensure THYROIDECTOMY Family History Problem Relation Name Age of Onset Diabetes Mother Hypertension Father Social History Tobacco Use Smoking status: Never Smokeless tobacco: Never Substance Use Topics Alcohol use: Yes Drug use: Never OB History Para Term AB Living 2 2 SAB IAB Ectopic Multiple Live Births # Outcome Date GA Lbr Han/2nd Weight Sex Type Anes PTL Lv 2 Para 1 Para Allergies Allergen Reactions Ciprofloxacin Nausea Only Penicillins Other Reaction(s): hives Review of Systems Constitutional: Negative. Respiratory: Negative. Cardiovascular: Negative. Gastrointestinal: Negative. Musculoskeletal: Negative. Skin: Negative. Neurological: Negative. Endocrine: Negative. Objective BP 144/86 Wt 235 lb BMI 35.47 kg/m Body mass index is 35.47 kg/m . Physical Exam Genitourinary: Urethral meatus normal. No lesions in the vagina. Right Labia: No lesions. Left Labia: No lesions. Vaginal cuff intact. No vaginal discharge. Right Adnexa: not tender and no mass present. Left Adnexa: not tender and no mass present. Cervix is absent. Uterus is absent. No urethral stress urinary incontinence with cough stress test present. Bladder is not tender. Rectum: No rectovaginal septum nodularity. Breasts: Right: No mass, nipple discharge, skin change or tenderness. Left: No mass, nipple discharge, skin change or tenderness. HENT: Head: Normocephalic and atraumatic. Mouth/Throat: Mouth: Mucous membranes are moist. Cardiovascular: Rate and Rhythm: Normal rate and regular rhythm. Pulmonary: Effort: Pulmonary effort is normal. Breath sounds: Normal breath sounds. Abdominal: General: Bowel sounds are normal. Palpations: Abdomen is soft. Musculoskeletal: General: No tenderness. Cervical back: Neck supple. Neurological: Mental Status: She is alert and oriented to person, place, and time. Skin: General: Skin is warm and dry. Psychiatric: Mood and Affect: Mood normal. Vitals and nursing note reviewed. Assessment/Plan 1. Encounter for gynecological examination without abnormal finding (Primary) Breast and pelvic exam performed. Discussed findings. Patient to contact the office with any changes to her gynecological condition. 2. Other screening mammogram Mammogram order given to patient. Patient to schedule appointment - Bilateral screening mammogram with tomosynthesis; Future 3. Obesity, morbid (CMS/HCC) 4. Hx of hysterectomy for benign disease ICD-10-CM 1. Encounter for gynecological examination without abnormal finding Z01.419 2. Other screening mammogram Z12.31 Bilateral screening mammogram with tomosynthesis 3. Obesity, morbid (CMS/HCC) E66.01 4. Hx of hysterectomy for benign disease Z90.710 Follow up in about 1 year (around 03/20/2025) for Yearly. Brianna Sun DO 03/20/2024 9:54 AM documented in this encounter [facility] 06-08-2023 Evaluation note Encounter Date Diagnosis Assessment Notes May, Acute non-recurrent maxillary sinusitis (ICD-10 - J01.00) Instructed to use Robitussin or Mucinex for cough, saline or Flonase NS for congestion, Tylenol for pain and fever. [facility] Other 12-26-2023 Evaluation note* Encounter Date Diagnosis Assessment Notes Treatment Notes Treatment Clinical Notes Mar, Wellness examination (ICD-10 - Z00.00) Healthy diet and exercise. Reviewed age-appropriate preventive testing recommended. Mar, Cigarette nicotine dependence in remission (ICD-10 - F17.211) Continue abstinence. Mar, Simple chronic bronchitis (ICD-10 - J41.0) No ER visits for AE Allergy driven Referred to Operations Staff Specialist Security: allergic to mold and dust mites Mar, Non-seasonal allergic rhinitis due to other allergic trigger (ICD-10 - J30.89) Discussed Flonase, Astelin, Claritin Saline rinse Allergy desensitizing injections Mar, Thyromegaly (ICD-10 - E01.0) Not taking thyoid replacement to suppress goiter. Mar, Screening mammogram for breast cancer (ICD-10 - Z12.31) Instructed patient on monthly SBE and yearly mammograms. [facility] Other 11-27-2023 Evaluation note* Encounter Date Diagnosis Assessment Notes Treatment Notes Treatment Clinical Notes Feb, Acute non-recurrent maxillary sinusitis (ICD-10 - J01.00) Instructed to use Robitussin or Mucinex for cough, saline or Flonase NS for congestion, Tylenol for pain and fever. Feb, Acute bilateral low back pain without sciatica (ICD-10 - M54.50) The patient is instructed to avoid bending, twisting or lifting. They are to use intermittent heat and ice as needed. They may schedule a massage or gentle manipulation. They may safely use Tylenol as needed. vocaltap Other 04-26-2023 Evaluation note* Encounter Date Diagnosis Assessment Notes Treatment Notes Treatment Clinical Notes Jul, Mild intermittent asthma without complication (ICD-10 - J45.20) vocaltap Other 01-20-2023 Evaluation note* Encounter Date Diagnosis Assessment Notes Treatment Notes Treatment Clinical Notes Apr, Acute left-sided low back pain with left-sided sciatica (ICD-10 - M54.42) Discussed diagnosis with patient. Toradol and Kenalog injection given today in office. Advised patient to take medications as directed. Use muscle relaxer at night time as it may cause drowsiness. May use OTC Tylenol and icy hot application for additional relief. Encouraged warm compresses, light stretches, and massage may also help with pain. Avoid strenuous activity, perform activity as tolerated, do not stay stationary for long periods of time as it might make symptoms worse. Follow up with PCP in 1 week if symptoms do not improve. Immediate eval for chest pain, shortness of breath, fever, numbness or tingling, loss of bowel or bladder control, pain becomes severe, difficulty moving neck, back, arms or legs, dizziness, headache, or any other new or concerning symptoms arise. Patient verbalizes understanding and is agreeable to treatment plan vocaltap Other Evaluation note* Diagnosis Epidermal cyst Sebaceous cyst documented in this encounter [facility] note* Diagnosis Onset Date Resolution Status Acute sinusitis acute COVID acute [facility] Work Phone: Evaluation note* Diagnosis Onset Date Resolution Status Acute sinusitis acute COVID acute Sciatica of left side noneac tive Low back pain acute [facility] Work Phone: Evaluation note* Diagnosis Encounter for gynecological examination without abnormal finding- Primary Other screening mammogram Obesity, morbid ([facility]) Morbid obesity Hx of hysterectomy for benign disease documented in this encounter [facility] HealthcareHistory general Narrative - Reported* Type Description Date Medical History back pain Medical History Meralgia Parasthetica Surgical History appendectomy Surgical History fibroid removal Surgical History C section x 2 Surgical History partial hysterectomy Surgical History cholecystectomy Hospitalization History see above vocaltap Other History general Narrative - Reported* Type Description Date Medical History back pain Medical History Meralgia Parasthetica Medical History asthma Surgical History appendectomy Surgical History fibroid removal Surgical History C section x 2 Surgical History partial hysterectomy Surgical History cholecystectomy Hospitalization History see above vocaltap Other History general Narrative - Reported* Type Description Date Medical History back pain Medical History Meralgia Parasthetica Medical History asthma Surgical History appendectomy Surgical History fibroid removal Surgical History C section x 2 Surgical History partial hysterectomy Surgical History cholecystectomy Surgical History Colonoscopy 2016 Hospitalization History see above vocaltap Other Summary Purpose Family History No Family History Records Found Relationship Condition Age at Onset Recorded Date/T tremayne father Hypertension Unknown mother Diabetes mellitus Unknown Advance Directives No Advanced Directives Records Found Advance Directive Response Recorded Date/ Time Advance Directives No December 12:02pm Chief Complaint and Reason for Visit Chief Complaint [phone] cough, fever cov neg Reason for Visit Acute sinusitis COVID Chief Complaint [phone] cough, fever cov neg lower back pain/hip Reason for Visit Acute sinusitis COVID Chief Complaint [phone] cough, fever cov neg lower back pain/hip Back Pain Reason for Visit Acute sinusitis COVID Sciatica of left side Low back pain Additional Source Comments INFORMATION SOURCE (unrecogn ized section and content) DATE CREATED AUTHOR 04/17/2020 [facility] DATE CREATED AUTHOR AUTHOR'S ORGANIZ ATION 08/02/2022 [facility] DATE CREATED AUTHOR AUTHOR'S ORGANIZ ATION 04/17/2023 [facility] DATE CREATED AUTHOR AUTHOR'S ORGANIZ ATION 03/23/2024 [facility] Special[facility] EPIC REASON FOR VISIT (unrecogniz ed section and content) Reason Comments Gynecologic Exam Patient here for a y early. Denies problems at this time. Completed mammogram on 05/07/23, will sent future order to the [facility]. Had colonoscopy in 2016. Care Teams (unrecognized sec tion and content) Charge Nurse Relationship Specialty Start Date End Date Jemal Polo DO [address] [place] [address] PCP - General Internal Medicine 04/09/23 Team Status: Active Member Role Status Dates Jemal Polo DO Primary Care Provider Active Team Status: Inactive Member Role Status Dates Jemal Polo DO Primary Care Provide r, Attending Provider Active Start: January 14, 2024 End: January 14, 2024 Team Status: Inactive Member Role Status Dates Jemal Polo DO Primary Care Provider Active Start: February 11, 2024 End: February 11, 2024 Jessica Byers APRN Attending Provider Active Start: February 11, 2024 End: February 11, 2024 Team Status: Inactive Member Role Status Dates Jemal Polo DO Primary Care Provide r, Attending Provider Active Start: February 12, 2024 End: February 12, 2024 Charge Nurse Relationship Specialty [place] [address] [place] [phone] PCP - General Internal Medicine 03/15/23 Goals (unrecognized section and content) Goals may be documented in a n alternate section FOR RECORDS PERTAINING TO PATIENTS WHO ARE OR HAVE BEEN ENROLLED IN A CHEMICAL DEPENDENCY/SUBSTANCEABUSE PROGRAM, SOME INFORMATION MAY BE OMITTED. This clinical summary was aggregated from multiple sources. Caution should be exercised in using it in the provision of clinical care. This summary normalizes information from multiple sources, and as a consequence, information in this document may materially change the coding, format and clinical context of patient data. In addition, data may be omitted in some cases. CLINICAL DECISIONS SHOULD BE BASED ON THE PRIMARY CLINICAL RECORDS. [facility]. provides no warranty or guarantee of the accuracy or completeness of information in this document.
--- NOTE | 2024-05-19 07:39 | MM_ITS ---
Patient Name: CRYSTAL MORSE MR#: [id number] : 1970 Exam Date: 05/19/2024 Ordering Doctor: DR. HARITHA AVILA D.O. RADIOLOGY REPORT PROCEDURE: MM TOMOSYNTHESIS SCREENING BI COMPARISON: MM TOMOSYNTHESIS SCREENING BI, 05/07/2023. MG MAMM SCREEN 3D JERSON CAD, 05/04/2022. MG MAMM SCREEN 3D JERSON CAD, 04/27/2021. MG MAMM JERSON SCRN W CAD DIG, 06/18/2014. INDICATIONS: Screening Calculator Name NCI Breast Cancer Risk Assessment Tool 5 Year Breast Cancer Risk 1.20% Lifetime Breast Cancer Risk 9.60% Personal Breast Cancer No Personal Ovarian Cancer No Treatments None Family Cancers Aunt-maternal with breast cancer at age 40. LOCATION: [facility] BREAST COMPOSITION: The breasts are heterogeneously dense,which may obscure small masses. FINDINGS: DIAGNOSTIC CATEGORY 1--NEGATIVE. RIGHT BREAST: No significant suspicious finding. No significant change has occurred. LEFT BREAST: No significant suspicious finding. No significant change has occurred. RECOMMENDATIONS: ROUTINE MAMMOGRAM AND CLINICAL EVALUATION IN 12 MONTHS. PLEASE NOTE: A NORMAL MAMMOGRAM DOES NOT EXCLUDE THE POSSIBILITY OF BREAST CANCER. A CLINICALLY SUSPICIOUS PALPABLE LUMP SHOULD BE BIOPSIED. Dictated by: Gino Thomas M.D. on 05/20/2024 at 15:29 Approved by: Gino Thomas M.D. on 05/20/2024 at 15:39
== END 2024-05-19 07:37 | disposition home or self-care (01) ==
LOC: MAMMO 07:36
PROVIDERS: PCP Internal Medicine; Visit Provider Obstetrics & Gynecology
DX: Z12.31 Encounter for screening mammogram for malignant neoplasm of breast (principal); Z80.3 Family history of malignant neoplasm of breast
CPT/HCPCS: 77063; 77067

== ENCOUNTER 2025-04-14 21:00 | Observation (INO) | payer BC, SELFPAY ==
[2025-04-14] VITALS (22 sets, daily range): BP systolic 112–169; BP diastolic 71–95; PULSE 70–86; TEMP 36.8; O2SAT 93–98; BMI 35.7
--- NOTE | 2025-04-14 21:13 | ECG_ITS ---
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 Measurements Intervals [place] Rate: 81 P: 62 VA: 166 QRS: -6 QRSD: 88 T: 28 QT: 364 QTc: 401 Interpretive Statements 1100 Sinus rhythm 8102 Low QRS voltage in chest leads Poor R wave progression 9120 atypical ECG No previous ECG available for comparison Electronically Signed On 04-15-2025 20:52:07 EST by SUMMER CARDOZA M.D.
--- NOTE | 2025-04-14 21:33 | ED.CHESTPAI1 ---
HPI - Chest Pain General Chief Complaint: Chest Pain Stated Complaint: Chest pain for 3 days Time Seen by Provider: 04/14/25 21:28 Source: patient Mode of arrival: walk-in Limitations: no limitations History of Present Illness HPI narrative: presents complaining of recurrent chest pain for the past 2-3 days. Describes it as a squeezing sensation that radiates thru to her back. No associated dyspnea or nausea. No abdominal pain. Related Data Home Medications ?Medication ?Instructions ?Recorded ?Confirmed No Known Home Medications 04/15/25 04/15/25 Allergies Allergy/AdvReac Type Severity Reaction Status Date / Time ciprofloxacin (From Cipro) Allergy Mild Vomiting Verified 04/14/25 21:21 amoxicillin AdvReac Mild Hives Verified 04/14/25 21:21 Penicillins AdvReac Mild Hives Verified 04/14/25 21:21 Review of Systems ROS Status of ROS 10 or more systems reviewed and unremarkable except as noted in history and below [facility] Medical History (Updated 04/15/25 @ 03:44 by Garland Ceron MD) Chest pain (04/14/25) ?R07.9 - Chest pain, unspecified (ICD-10) Social History Little interest or pleasure in doing things: not at all Feeling down, depressed, or hopeless: not at all Exam Constitutional Vital Signs, click to edit/add: Last Vital Signs Temp 98.3 F 04/14/25 21:08 Pulse 70 04/15/25 00:01 Resp 19 04/15/25 00:01 BP 133/73 04/15/25 00:01 Pulse Ox 97 04/14/25 22:50 O2 Del Method Room Air 04/14/25 21:08 Common normals: no apparent distress, average body habitus, oriented x3, no limitations, healthy appearing, alert and well nourished [facility] Common normals: normocephalic and head/scalp atraumatic Respiratory Common normals: normal respiratory effort, no retractions, no use of accessory muscles and clear to auscultation bilaterally Cardio Common normals: regular rate, regular rhythm, S1 normal heart sound and S2 normal heart sound GI Common normals: Normal to inspection, nondistended, normoactive bowel sounds present, soft to palpation and non-tender Extremity Common normals: normal to inspection and full ROM Neuro Common normals: oriented x3, CN's II-XII intact bilaterally, moves all extremities and no focal motor deficits Psych Appearance: grossly normal Course Vital Signs Vital signs: Vital Signs Temperature 98.3 F 04/14/25 21:08 Pulse Rate 77 04/14/25 21:08 Respiratory Rate 14 04/14/25 21:08 Blood Pressure 128/76 04/14/25 21:08 Pulse Oximetry 97 04/14/25 21:08 Oxygen Delivery Method Room Air 04/14/25 21:08 Temperature 98.3 F 04/14/25 21:08 Pulse Rate 70 04/15/25 00:01 Respiratory Rate 19 04/15/25 00:01 Blood Pressure 133/73 04/15/25 00:01 Pulse Oximetry 97 04/14/25 22:50 Oxygen Delivery Method Room Air 04/14/25 21:08 MDM - Chest Pain MDM Narrative Medical decision making narrative: patient presents with recurrent Squeezing chest pain on and off for the past couple of days. No past history of heart disease or GERD. No associated dyspnea. Pain radiated into her back. NTG SL helped but the pain was already decreasing. No benefit from GI cocktail. First troponin neg. cxray clearEKG NSR. diffuse low voltage. no acute findings discussed with hospitalist who request CTA chest. CTA returns neg. will plan obs admission for chest pain Lab Data Labs: Lab Results 04/14/25 04/14/25 Range/Units 21:25 23:56 WBC 11.7 H (4.0-11.0) 10^3/uL RBC 4.38 (4.20-5.40) 10^6/uL Hgb 13.8 (12.0-16.0) g/dL Hct 40.5 (36.0-48.0) % MCV 92.5 (81.0-99.0) fL MCH 31.5 (26.7-34.0) pg MCHC 34.1 (29.9-35.2) g/dL RDW 12.7 (11.0-15.0) % Plt Count 312 (150-450) 10^3/uL MPV 9.0 L (9.5-13.5) fL Neut % (Auto) 65.6 (43.0-75.0) % Lymph % (Auto) 23.9 (20.5-60.0) % [place] % (Auto) 6.4 (1.7-12.0) % Eos % (Auto) 2.7 (0.9-7.0) % Baso % (Auto) 0.9 (0.2-2.0) % Neut # (Auto) 7.6 H (1.4-6.5) 10^3/uL Lymph # (Auto) 2.8 (1.2-3.8) 10^3/uL [place] # (Auto) 0.8 (0.3-0.8) 10^3/uL Eos # (Auto) 0.3 (0.0-0.7) 10^3/uL Baso # (Auto) 0.1 (0.0-0.1) 10^3/uL Abs Immat Gran (auto) 0.06 H (0.00-0.03) 10^3/uL Imm/Tot Granulo (auto) 0.5 (0.0-0.5) % D-Dimer 0.30 (<=0.59) mg/L FEU Sodium 140 (136-145) mmol/L Potassium 3.9 (3.5-5.1) mmol/L Chloride 107 (98-107) mmol/L Carbon Dioxide 27.6 (21.0-32.0) mmol/L Anion Gap 9.3 BUN 17.0 (7.0-18.0) mg/dL Creatinine 0.90 (0.55-1.02) mg/dL Est GFR ( Amer) >60 (>=60 mL/min/1.73m^2) Est GFR (Non-Af Amer) >60 (>=60 mL/min/1.73m^2) BUN/Creatinine Ratio 18.9 Glucose 118 H (74-106) mg/dL Calcium 9.2 (8.5-10.1) mg/dL Total Bilirubin 0.2 (0.2-1.0) mg/dL AST 9 L (15-37) U/L ALT 18 (14-59) U/L Alkaline Phosphatase 71 (46-116) U/L Troponin I High Sens <4.0 L 4.0 (4.0-51.3) pg/mL Total Protein 6.8 (6.4-8.2) g/dL Albumin 3.3 L (3.4-5.0) g/dL Globulin 3.5 g/dL Albumin/Globulin Ratio 0.9 Lipase 28.0 (16.0-77.0) U/L Discharge Plan Discharge Chief Complaint: Chest Pain Clinical Impression: Chest pain Patient Disposition: Admitted as Observation
--- NOTE | 2025-04-14 21:35 | XR_ITS ---
[address] [address] Patient Name: CRYSTAL MORSE MRN: [id number] date: 1970 Sex: F Assigned Patient Location: ER Current Patient Location: ER Accession/Order Number: [id number] Exam Date: 04/14/2025 21:40 Report Date: 04/14/2025 21:58 At the request of: LAMBERTO FLAHERTY MD Procedure: XR chest 1V XR chest 1V 04/14/2025 9:46 PM SIGNS AND SYMPTOMS: ^chest pain PROTOCOL: Frontal radiograph of the chest COMPARISON: None FINDINGS: The trachea is midline. The heart and mediastinal structures are within normal limits. The lung parenchyma is clear. The bony thorax is intact. Degenerative changes are noted in the shoulders. XR/XR chest 1V IMPRESSION: No acute cardiopulmonary pathology. Impression dictated by: Ankush Tong M.D. 04/14/2025 9:58 PM Dictation Location: [place] [address] Electronically authenticated by: [id number] Y Date: 04/14/2025 21:58
[2025-04-14 21:43] LABS: Hematocrit 40.5 % (36.0-48.0); Hemoglobin 13.8 g/dL (12.0-16.0); Immature Granulocytes Abs Auto 0.06 10^3/uL (0.00-0.03); Immature Granulocytes Pct Auto 0.5 % (0.0-0.5); Lymphocytes Absolute Auto 2.8 10^3/uL (1.2-3.8); Mean Corpuscular HGB Conc 34.1 g/dL (29.9-35.2); Mean Corpuscular Hemoglobin 31.5 pg (26.7-34.0); Mean Corpuscular Volume 92.5 fL (81.0-99.0); Platelet Count 312 10^3/uL (150-450); Red Blood Count 4.38 10^6/uL (4.20-5.40); White Blood Count 11.7 10^3/uL (4.0-11.0)
[2025-04-14 22:17] LABS: Alanine Aminotransferase 18 U/L (14-59); Albumin Globulin Ratio 0.9; Albumin Level 3.3 g/dL (3.4-5.0); Alkaline Phosphatase 71 U/L (46-116); Anion Gap 9.3; Aspartate Amino Transferase 9 U/L (15-37); Blood Urea Nitrogen 17.0 mg/dL (7.0-18.0); Calcium 9.2 mg/dL (8.5-10.1); Carbon Dioxide 27.6 mmol/L (21.0-32.0); Chloride 107 mmol/L (98-107); Estimated GFR (African America >60 (>=60 mL/min/1.73m^2); Estimated GFR (Non-African Ame >60 (>=60 mL/min/1.73m^2); Globulin 3.5 g/dL; Glucose 118 mg/dL (74-106); Lipase 28.0 U/L (16.0-77.0); Potassium 3.9 mmol/L (3.5-5.1); Sodium 140 mmol/L (136-145); Total Protein 6.8 g/dL (6.4-8.2)
--- OUTSIDE RECORDS SUMMARY | 2025-04-14 22:23 | XMS_ITS | Clinical Summary ---
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
--- OUTSIDE RECORDS SUMMARY | 2025-04-14 22:23 | XMS_ITS | Clinical Summary ---
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 Role Phone Jemal Polo DO Primary Care Provider [phone] Allergies Active AllergyReactionsCriticalityNoted DateCommentsCiprofloxacinNausea Only 10/05/20165080Frmqnsuvvto17/08/2017 Other Reaction(s): hives Medications MedicationSigDispense QuantityRefillsLast FilledStart DateEnd DateStatus Estradiol 0.01 % cream Indications:Dyspareunia in female,Vaginal dryness, menopausal,Hx of hysterectomy for benign diseaseInsert 0.5 g into the vagina See administration instructions 0.5 gram vaginally at bedtime for 2 weeks, then 2-3 times per week 42.5 g 5Active Active Problems No known active problems Encounters DateTypeDepartmentCare JvtcMonlsauqgib19/25/2025 9:00 AM ESTOffice Visit [facility] [address] [phone] Brianna Sun DO Encounter for gynecological examination without abnormal finding (Primary Dx); Other screening mammogram; Dyspareunia in female; Vaginal dryness, menopausal; Hx of hysterectomy for benign disease; Obesity, morbid ([facility])03/24/2025Travelfrom Last 3 Months Family History Medical HistoryRelationNameCommentsHypertensionFatherDiabetesMotherRelationName StatusCommentsFatherAliveMotherAlive Social History Tobacco UseTypesPacks/DayYears UsedDateSmoking Tobacco: NeverSmokeless Tobacco: Never Tobacco Cessation:Counseling Given: Not Answered Alcohol UseStandard Drinks/WeekCommentsYes0 (1 standard drink = 0.6 oz pure alcohol)CommentsNoSex and Gender InformationValueDate RecordedSex Assigned at BirthNot on fileLegal FdiGrrdzc84/15/2023 6:58 PM EDTGender Identity Not on fileSexual OrientationNot on file Last Filed Vital Signs Vital SignReadingTime TakenCommentsBlood Vuzxqfas589/80105/24/2024 9:04 AM EST Pulse--Temperature--Respiratory Rate--Oxygen Saturation--Inhaled Oxygen Concentration--Pjvmbt204 kg (234 lb)03/24/2025 9:04 AM ROAMimdol699.4 cm (5' 8.25 )08/23/2022 12:00 PM EDTBody Mass Index35.32008/23/2022 12:00 PM EDT Plan of Treatment DateTypeDepartmentCare Team (Latest Contact Info)Xloetmmzvwh57/25/2026 8:45 AM ESTOffice Visit [facility] [address] [place] [address] [address] Brianna Sun DO [address] [address] 03/31/2026 9:45 AM ESTOffice Visit [facility] [address] [place] [address] [address] Brianna Sun DO [address] [address] Insurance * Guarantor: Milagro Morse TypeRelation to PatientDate of BirthPhone Billing AddressPersonal/DvrevgDyak1970 [address] [address] Care Teams Team MemberRelationshipSpecialtyStart DateEnd Date Jemal Polo DO [address] [place] [phone] PCP - GeneralInternal Jhpqxwgw48/16/23
[2025-04-14] MEDS: NITROGLYCERIN 0.4 MG BOTTLE SL (22:55)
[2025-04-15] VITALS (40 sets, daily range): BP systolic 109–146; BP diastolic 61–85; PULSE 63–87; TEMP 36.7; O2SAT 90–97; BMI 36.2
--- NOTE | 2025-04-15 05:15 | ECG_ITS ---
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 Measurements Intervals [place] Rate: 73 P: 65 CO: 189 QRS: 45 QRSD: 98 T: 43 QT: 409 QTc: 451 Interpretive Statements SINUS RHYTHM WITH SINUS ARRHYTHMIA Normal ECG Compared to ECG 04/14/2025 21:13:31 Poor R-wave progression no longer present Electronically Signed On 04-15-2025 20:53:46 EST by SUMMER CARDOZA M.D.
[2025-04-15 06:01] LABS: Hematocrit 40.7 % (36.0-48.0); Hemoglobin 13.7 g/dL (12.0-16.0); Immature Granulocytes Abs Auto 0.06 10^3/uL (0.00-0.03); Immature Granulocytes Pct Auto 0.7 % (0.0-0.5); Lymphocytes Absolute Auto 2.3 10^3/uL (1.2-3.8); Mean Corpuscular HGB Conc 33.7 g/dL (29.9-35.2); Mean Corpuscular Hemoglobin 31.2 pg (26.7-34.0); Mean Corpuscular Volume 92.7 fL (81.0-99.0); Platelet Count 293 10^3/uL (150-450); Red Blood Count 4.39 10^6/uL (4.20-5.40); White Blood Count 8.2 10^3/uL (4.0-11.0)
[2025-04-15 06:39] LABS: Alanine Aminotransferase 19 U/L (14-59); Alkaline Phosphatase 63 U/L (46-116); Anion Gap 13.9; Aspartate Amino Transferase 9 U/L (15-37); Blood Urea Nitrogen 14.0 mg/dL (7.0-18.0); Calcium 9.2 mg/dL (8.5-10.1); Carbon Dioxide 25.3 mmol/L (21.0-32.0); Chloride 107 mmol/L (98-107); Estimated GFR (African America >60 (>=60 mL/min/1.73m^2); Estimated GFR (Non-African Ame >60 (>=60 mL/min/1.73m^2); Glucose 95 mg/dL (74-106); Potassium 4.2 mmol/L (3.5-5.1); Sodium 142 mmol/L (136-145)
[2025-04-15 06:40] LABS: Albumin Globulin Ratio 0.9; Albumin Level 3.2 g/dL (3.4-5.0); Cholesterol 173 mg/dL (<=200); Globulin 3.6 g/dL; HDL Cholesterol 65 mg/dL (40-60); Total Protein 6.8 g/dL (6.4-8.2); Triglycerides 50 mg/dL (<=150); VLDL CHOLESTEROL 10.0 mg/dL
[2025-04-15] MEDS: ASPIRIN 81 MG TABLET.DR 162 MG PO (08:32)
[2025-04-15] MEDS: ENOXAPARIN SODIUM 40 MG/0.4 ML SYRINGE SUBQ (08:32)
--- NOTE | 2025-04-15 09:36 | P.IMHP_ITS ---
Internal Medicine - H&P: HPI History of Present Illness Chief complaint: CHEST PAIN Narrative: Milagro Sevilla is a 55 y/o F, h/o allergic rhinitis, smoker presented to [facility] for recurrent chest tightness prompting request for admission for observation and cardiac workup. On assessment at bedside on the regular nursing floor on 04/15/2025, patient resting comfortably in bed, states has had intermittent chest pain at rest described as diffuse chest tightness starting on Sunday, no prior episodes, primarily in the evening after dinner, while reclining or laying flat. Denies any diaphoresis, radiation to the neck or arms, some radiation to the back. No fevers, chills, nausea or vomiting. In the emergency room, WBC 11.7, hemoglobin 13.8, platelet count 312, sodium 140, potassium 3.9, BUN 17, creatinine 0.90, high-sensitivity troponin less than 4, then 4. EKG showed normal sinus with no ischemic changes. Review of Systems ROS Status of ROS 10 or more systems reviewed and unremark able except as noted in history and below [facility] Medical History (Updated 04/15/25 @ 11:21 by UNA VANG MD) Post-nasal discharge ?R09.82 - Postnasal drip (ICD-10) Allergies ?T78.40XA - Allergy, unspecified, initial encounter (ICD-10) Chest pain (04/14/25) ?R07.9 - Chest pain, unspecified (ICD-10) Surgical History (Updated 04/15/25 @ 04:30 by Lia Connell RN) Hx of section ?Z98.891 - History of uterine scar from previous surgery (ICD-10) Hx of cholecystectomy ?Z90.49 - Acquired absence of other specified parts of digestive tract (ICD- 10) H/O: hysterectomy ?Z90.710 - Acquired absence of both cervix and uterus (ICD-10) Hx of appendectomy ?Z90.49 - Acquired absence of other specified parts of digestive tract (ICD- 10) Hx of partial thyroidectomy ?Z98.890 - Other specified postprocedural states (ICD-10) ?Z90.89 - Acquired absence of other organs (ICD-10) Family History (Updated 04/15/25 @ 04:31 by Lia Connell RN) Aunt Family history of cancer Mother Family history of diabetes mellitus Father Family history of hypertension Social History (Updated 04/15/25 @ 04:33 by Lia Connell RN) Within the past year, how often did you have a drink containing alcohol: 2-4 times a month Within the past year, how many standard drinks containing alcohol did you have on a typical day: 5 or 6 Smoking status: Never smoker Non-prescribed substance use: denies use Highest level of school completed/degree received: Bachelor's degree Are you now , , , , never or living with a partner: In a typical week, how many times do you talk on the telephone with family, friends, or neighbors: 3 or more times per week How often do you get together with friends or relatives: 3 or more times per week Little interest or pleasure in doing things: not at all Feeling down, depressed, or hopeless: several days Feel stressed/tense/nervous/anxious/difficulty sleeping: not at all Life stressor details: work Do you think of yourself as: straight/heterosexual Gender Identity: female Meds Home Medications and Allergies Home Medications ?Medication ?Instructions ?Recorded ?Confirmed ?Type No Known Home Medications 04/15/2503/30 History Allergies Allergy/AdvReac Type Severity Reaction Status Date / Time ciprofloxacin (From Cipro) Allergy Mild Vomiting Verified 04/14/25 21:21 amoxicillin AdvReac Mild Hives Verified 04/14/25 21:21 Penicillins AdvReac Mild Hives Verified 04/14/25 21:21 Exam Narrative Exam Narrative: General: cooperative and tired appearing Orientation: alert, awake and oriented x3 Head: normal to inspection Neck: normal visual inspection Cardio: no JVD, regular rate, regular rhythm Chest palpation & inspection: normal inspection of the chest Resp Effort & Inspection: normal respiratory effort Abd: soft, non-tender, non-distended Extremities: Warm well perfused, no edema Constitutional Vital Signs, click to edit/add: Last Vital Signs Temp 98.1 F 04/15/25 07:47 Pulse 74 04/15/25 08:00 Resp 24 H 04/15/25 07:47 BP 110/72 04/15/25 07:47 Pulse Ox 90 L 04/15/25 07:47 O2 Del Method Room Air 04/15/25 07:47 Internal Medicine - H&P: Reslt Labs Labs: Short CBC 04/14/25 04/15/25 Range/Units 21:25 05:36 WBC 11.7 H 8.2 (4.0-11.0) 10^3/uL Hgb 13.8 13.7 (12.0-16.0) g/dL Hct 40.5 40.7 (36.0-48.0) % Plt Count 312 293 (150-450) 10^3/uL BMP 04/14/25 04/15/25 21:25 05:36 Sodium 140 142 Potassium 3.9 4.2 Chloride 107 107 Carbon Dioxide 27.6 25.3 BUN 17.0 14.0 Creatinine 0.90 0.76 Glucose 118 H 95 Calcium 9.2 9.2 Liver Function 04/14/25 04/15/25 Range/Units 21:25 05:36 Total Bilirubin 0.2 0.3 (0.2-1.0) mg/dL AST 9 L 9 L (15-37) U/L ALT 18 19 (14-59) U/L Alkaline Phosphatase 71 63 (46-116) U/L Albumin 3.3 L 3.2 L (3.4-5.0) g/dL Assessment and Plan Assessment and Plan (1) Chest pain: Qualifiers: Chest pain type: precordial pain Qualified Code(s): R07.2 - Precordial pain Plan Milagro Sevilla is a 55 y/o F, h/o allergic rhinitis, smoker presented to [facility] for recurrent chest tightness prompting request for admission for observation and cardiac workup. 1. Atypical chest pain at rest - In the emergency room, WBC 11.7, hemoglobin 13.8, platelet count 312, sodium 140, potassium 3.9, BUN 17, creatinine 0.90, high-sensitivity troponin less than 4, then 4. EKG showed normal sinus with no ischemic changes. CXR w/o acute findings - does have smoking as risk factor for cardiac etiology - differential includes GERD given association with eating - Rule out COVID, influenza, RSV - Consult cardiology to determine need for ischemic evaluation - Start pantoprazole 40 mg daily for 90 days Diet: regular Daily Labs: CBC, BMP Lines/Drains: PIV DVT ppx: Lovenox Code status: Full Status: observation for possible cardiac workup
--- NOTE | 2025-04-15 10:00 | CM.NOTE ---
Rounds made with Dr. Butler, discussed with pt plan of care. Pt continues with tightness in chest, cardiology will consult with pt today for further recommendations. Pt will also have cardiac echo today. Possible discharge this evening based on cardiology recommendations and echo.
[2025-04-15] MEDS: PANTOPRAZOLE SODIUM 40 MG TABLET.DR PO (11:38)
--- NOTE | 2025-04-15 13:22 | P.CACN_ITS ---
History of Present Illness History of Present Illness Consult date: 04/15/25 Requesting physician: Kyle Orourke Consult reason: chest pain Chief complaint: CHEST PAIN Narrative: Mrs. Sevilla presents with chest pain on and off for a week. [place] as though lungs were tight and coudn't breath due to tightness over the chest crushing Used inhaler without help. Yesterday became worse and was on and off all day. Of note, she has been able to walk to barn and carry 5 gallon buckets of water and 50 lb feed bags without chest pain. 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 MOther diabetes, father hypertension, siblings healthy Does smoke about 1/2 pack per day cigarettes Review of Systems ROS Status of ROS 10 or more systems reviewed and unremark able except as noted in history and below [facility] Medical History (Updated 04/15/25 @ 13:28 by HAMLET GUNN MD) Post-nasal discharge ?R09.82 - Postnasal drip (ICD-10) Allergies ?T78.40XA - Allergy, unspecified, initial encounter (ICD-10) Chest pain (04/14/25) ?R07.9 - Chest pain, unspecified (ICD-10) Surgical History Hx of section ?Z98.891 - History of uterine scar from previous surgery (ICD-10) Hx of cholecystectomy ?Z90.49 - Acquired absence of other specified parts of digestive tract (ICD- 10) H/O: hysterectomy ?Z90.710 - Acquired absence of both cervix and uterus (ICD-10) Hx of appendectomy ?Z90.49 - Acquired absence of other specified parts of digestive tract (ICD- 10) Hx of partial thyroidectomy ?Z98.890 - Other specified postprocedural states (ICD-10) ?Z90.89 - Acquired absence of other organs (ICD-10) Family History Aunt Family history of cancer Mother Family history of diabetes mellitus Father Family history of hypertension Social History Within the past year, how often did you have a drink containing alcohol: 2-4 times a month Within the past year, how many standard drinks containing alcohol did you have on a typical day: 5 or 6 Smoking status: Never smoker Non-prescribed substance use: denies use Highest level of school completed/degree received: Bachelor's degree Are you now , , , , never or living with a partner: In a typical week, how many times do you talk on the telephone with family, frie nds, or neighbors: 3 or more times per week How often do you get together with friends or relatives: 3 or more times per week Little interest or pleasure in doing things: not at all Feeling down, depressed, or hopeless: several days Feel stressed/tense/nervous/anxious/difficulty sleeping: not at all Life stressor details: work Do you think of yourself as: straight/heterosexual Gender Identity: female Meds Home Medications and Allergies Home Medications ?Medication ?Instructions ?Recorded ?Confirmed ?Type No Known Home Medications 04/15/2503/30 History Allergies Allergy/AdvReac Type Severity Reaction Status Date / Time ciprofloxacin (From Cipro) Allergy Mild Vomiting Verified 04/14/25 21:21 amoxicillin AdvReac Mild Hives Verified 04/14/25 21:21 Penicillins AdvReac Mild Hives Verified 04/14/25 21:21 Exam Narrative Exam Narrative: Alert female feels well Constitutional Vital Signs, click to edit/add: Last Vital Signs Temp 98.1 F 04/15/25 11:34 Pulse 80 04/15/25 12:00 Resp 18 04/15/25 11:34 BP 122/75 04/15/25 11:34 Pulse Ox 95 04/15/25 11:34 O2 Del Method Room Air 04/15/25 11:34 Documenting provider has reviewed patient's vital signs: yes Common normals: no apparent distress General appearance: cooperative Orientation/consciousness: Yes awake, Yes oriented to person and Yes oriented to place [facility] Common normals: normocephalic and head/scalp atraumatic Neck & C-Spine Common normals: full ROM, no JVD and no carotid bruits Chest Common normals: inspection of chest normal Respiratory Common normals: normal respiratory effort, no use of accessory muscles and clear to auscultation bilaterally Cardio Common normals: no JVD, regular rate, regular rhythm, S1 normal heart sound, S2 normal heart sound, no gallops, no clicks, no murmurs, no rub and peripheral pulses 2+ throughout Extremity Common normals: normal to inspection General: normal exam except as noted Neuro Common normals: oriented x3 Psych Common normals: mental status grossly normal Results Labs and Meds Lab results: Cardiac Enzymes 04/14/25 04/15/25 Range/Units 21:25 05:36 AST 9 L 9 L (15-37) U/L Lipids 04/15/25 Range/Units 05:36 Triglycerides 50 (<=150) mg/dL Cholesterol 173 (<=200) mg/dL HDL Cholesterol 65 H (40-60) mg/dL Cholesterol/HDL Ratio 2.7 CBC 04/14/25 04/15/25 Range/Units 21:25 05:36 WBC 11.7 H 8.2 (4.0-11.0) 10^3/uL RBC 4.38 4.39 (4.20-5.40) 10^6/uL Hgb 13.8 13.7 (12.0-16.0) g/dL Hct 40.5 40.7 (36.0-48.0) % Plt Count 312 293 (150-450) 10^3/uL Neut # (Auto) 7.6 H 4.8 (1.4-6.5) 10^3/uL Lymph # (Auto) 2.8 2.3 (1.2-3.8) 10^3/uL Josephine # (Auto) 0.8 0.7 (0.3-0.8) 10^3/uL Eos # (Auto) 0.3 0.3 (0.0-0.7) 10^3/uL Baso # (Auto) 0.1 0.1 (0.0-0.1) 10^3/uL Comprehensive Metabolic Panel 04/14/25 04/15/25 Range/Units 21:25 05:36 Sodium 140 142 (136-145) mmol/L Potassium 3.9 4.2 (3.5-5.1) mmol/L Chloride 107 107 (98-107) mmol/L Carbon Dioxide 27.6 25.3 (21.0-32.0) mmol/L BUN 17.0 14.0 (7.0-18.0) mg/dL Creatinine 0.90 0.76 (0.55-1.02) mg/dL Glucose 118 H 95 (74-106) mg/dL Calcium 9.2 9.2 (8.5-10.1) mg/dL AST 9 L 9 L (15-37) U/L ALT 18 19 (14-59) U/L Alkaline Phosphatase 71 63 (46-116) U/L Total Protein 6.8 6.8 (6.4-8.2) g/dL Albumin 3.3 L 3.2 L (3.4-5.0) g/dL Intake and Output 04/14/25 04/15/25 04/15/25 23:59 07:59 15:59 Other: # Voids 1 Weight 106.594 kg 107.9 kg EKG Interpretation EKG: WNL, sinus rhythm, normal axis, normal QRS, normal ST/T and no acute changes Assessment and Plan Assessment and Plan (1) Chest pain: Qualifiers: Chest pain type: precordial pain Qualified Code(s): R07.2 - Precordial pain (2) Paroxysmal SVT (supraventricular tachycardia): Plan Mrs. Sevilla has chest pain that is consistent with angina (mid chest, crushing tightness) however, it is not with activity and she is able to carry 50 lb feedbags without symptoms. In addition, with normal troponins x 3 the likelihood of this being cardiac is much less likely in the face of day-long pain. CP Recommend: 1. stop cigarette use (I informed patient that this would reduce risk of CAD s ignificantly 2. Start aspirin 81 mg EC daily 3. Consider outpatient routine stress test 4. Agree with GI evalulation for potential esophageal spasm/reflux I would be happy to see her again after stress test. Of note, while i was seeing her she had a brief run of paroxysmal SVT. She felt the palpitation with this and this was not like chest pain that brought her in. Unless these symptoms bother her or SVT sustained, I would not treat at this time.
--- NOTE | 2025-04-15 13:25 | PC.NURSE ---
patient had a short episode of paroxysmal svt , Dr. Muse with cardiology was walking by and specification writer notified him
--- NOTE | 2025-04-15 14:11 | PM.DS1 ---
DS: Providers Provider Date of admission: 04/15/25 04:04 Primary care physician: Jemal Polo DO Admitting clinician: Kyle Orourke Attending physician on admission: Kyle Orourke Consults: 04/15/25 05:15 Consult to Cardiology Routine Reason for consultation: Chest pain Attending physician on discharge: UNA VANG Discharging clinician: UNA VANG DS: Diagnosis Discharge Diagnosis (1) Chest pain: Qualifiers: Chest pain type: precordial pain Qualified Code(s): R07.2 - Precordial pain (2) Paroxysmal SVT (supraventricular tachycardia): DS: Summary Hospital Course Hospital Course: Milagro Sevilla is a 55 y/o F, h/o allergic rhinitis, smoker presented to [facility] 04/14/25 for recurrent chest tightness prompting request for admission for observation and cardiac workup. In the emergency room, WBC 11.7, hemoglobin 13.8, platelet count 312, sodium 140, potassium 3.9, BUN 17, creatinine 0.90, high-sensitivity troponin less than 4, then 4. EKG showed normal sinus with no ischemic changes. Cardiology consulted and recommended outpatient stress test and to start ASA 81 daily. Started on pantoprazole 40 mg daily for possible GERD and referred to outpatient GI for evaluation for possible esophageal spasm. Discharged on 04/15/25 in stable condition. Of note, per cardiology did have brief run of paroxysmal SVT, no recurrence of chest pain, recommended by cardiology not to treat unless sustained or developed symptoms. Time Spent with Patient Time attestation: Total time spent providing and/or coordinating discharge services: Exam Constitutional Vital Signs, click to edit/add: Last Vital Signs Temp 98.1 F 04/15/25 11:34 Pulse 86 04/15/25 13:58 Resp 18 04/15/25 11:34 BP 122/75 04/15/25 11:34 Pulse Ox 95 04/15/25 11:34 O2 Del Method Room Air 04/15/25 11:34 DS: Data Data Completed and Pending Labs on day of discharge: Labs from last 24 hours 04/15/25 04/15/25 04/14/25 10:16 05:36 23:56 WBC 8.2 RBC 4.39 Hgb 13.7 Hct 40.7 MCV 92.7 MCH 31.2 MCHC 33.7 RDW 12.7 Plt Count 293 MPV 9.1 L Neut % (Auto) 58.0 Lymph % (Auto) 28.6 [facility] % (Auto) 8.6 Eos % (Auto) 3.2 Baso % (Auto) 0.9 Neut # (Auto) 4.8 Lymph # (Auto) 2.3 [facility] # (Auto) 0.7 Eos # (Auto) 0.3 Baso # (Auto) 0.1 Abs Immat Gran (auto) 0.06 H Imm/Tot Granulo (auto) 0.7 H D-Dimer Sodium 142 Potassium 4.2 Chloride 107 Carbon Dioxide 25.3 Anion Gap 13.9 BUN 14.0 Creatinine 0.76 Est GFR ( Amer) >60 Est GFR (Non-Af Amer) >60 BUN/Creatinine Ratio 18.4 Glucose 95 Calcium 9.2 Total Bilirubin 0.3 AST 9 L ALT 19 Alkaline Phosphatase 63 Troponin I High Sens 4.0 4.0 Total Protein 6.8 Albumin 3.2 L Globulin 3.6 Albumin/Globulin Ratio 0.9 Triglycerides 50 Cholesterol 173 LDL Cholesterol, Calc 98.0 VLDL Cholesterol 10.0 HDL Cholesterol 65 H Cholesterol/HDL Ratio 2.7 Lipase Influenza Type A Ag Negative Influenza Type B Ag Negative RSV Antigen Not detected 04/14/25 21:25 WBC 11.7 H RBC 4.38 Hgb 13.8 Hct 40.5 MCV 92.5 MCH 31.5 MCHC 34.1 RDW 12.7 Plt Count 312 MPV 9.0 L Neut % (Auto) 65.6 Lymph % (Auto) 23.9 [facility] % (Auto) 6.4 Eos % (Auto) 2.7 Baso % (Auto) 0.9 Neut # (Auto) 7.6 H Lymph # (Auto) 2.8 [facility] # (Auto) 0.8 Eos # (Auto) 0.3 Baso # (Auto) 0.1 Abs Immat Gran (auto) 0.06 H Imm/Tot Granulo (auto) 0.5 D-Dimer 0.30 Sodium 140 Potassium 3.9 Chloride 107 Carbon Dioxide 27.6 Anion Gap 9.3 BUN 17.0 Creatinine 0.90 Est GFR ( Amer) >60 Est GFR (Non-Af Amer) >60 BUN/Creatinine Ratio 18.9 Glucose 118 H Calcium 9.2 Total Bilirubin 0.2 AST 9 L ALT 18 Alkaline Phosphatase 71 Troponin I High Sens <4.0 L Total Protein 6.8 Albumin 3.3 L Globulin 3.5 Albumin/Globulin Ratio 0.9 Triglycerides Cholesterol LDL Cholesterol, Calc VLDL Cholesterol HDL Cholesterol Cholesterol/HDL Ratio Lipase 28.0 Influenza Type A Ag Influenza Type B Ag RSV Antigen Discharge Plan Discharge Disposition: Home, Self-Care Discharge Medications: New pantoprazole 40 mg Tablet,Delayed Release (Dr/Ec) 40 mg PO ACB 90 Days Qty: 90 0RF aspirin 81 mg tablet 81 mg PO DAILY Qty: 90 0RF Activity: resume usual activities as tolerated Diet: advance to your usual diet Print Language: Arabic Patient Instructions: Aspirin (By mouth), Pantoprazole (By mouth), Angina (DC) Activity Restrictions/Additional Instructions: Please call for an appointment with Gastroenterology for evaluation of possible esophageal spasms Forms: Portal Instructions Referrals: HAMLET GUNN MD [Physician, Cardiology] ENRIQUETA YO [Physician, Gastroenterology] Referral Note: esophageal spasm vs GERD Follow Up Appointments: Dr Polo April 21 at 3PM [phone] Cardiology, Dr Gunn, SundayMay 06 at 9:40AM [place] [facility], Dr Guerra, June 18 at 10 AM [phone] Discharge Date/Time: 04/15/25 15:30
--- NOTE | 2025-04-15 14:36 | CM.NOTE ---
Discussed with pt cardiology recommendations for outpatient stress test, pt verbalizes understanding. CM call and spoke with Ricarda in Cardiology clinic and order was sent for stress test. Updated pt that Centralized scheduling would reach out for date and time. Updated Dr. Butler.
--- NOTE | 2025-04-15 14:38 | CM.NOTE ---
Dr. Butler in to discuss discharge with pt, Dr. Butler would like to cancel echo. Pt will discharge and have outpatient stress test. CM will cancel echo.
--- NOTE | 2025-04-16 13:50 | CM.DCFOLLOWU ---
1st attempt, no answer, 04/16
== END 2025-04-15 15:30 | disposition home or self-care (01) ==
LOC: ER 04-15 03:44 → MS 04-15 04:09
PROVIDERS: Student in an Organized Health Care Education/Training Program; Admitting Provider Internal Medicine; Emergency Provider Internal Medicine; PCP Internal Medicine; Visit Provider Internal Medicine
DX: R07.2 Precordial pain (principal); I47.10 Supraventricular tachycardia, unspecified; F17.210 Nicotine dependence, cigarettes, uncomplicated
CPT/HCPCS: 36415; 71045; 71275; 80053; 80061; 83690; 84484; 85025; 85378; 87420; 87804; 93005; 94761; 96372; 99285; G0378; J1650; Q9967